=== PATIENT | female | born 1975 | race Two or more races ===

== ENCOUNTER 2017-04-29 19:41 | Emergency (ER) | payer OTHER ==
--- NOTE | 2017-04-29 20:14 | ER Document Report ---
ED Cardiac - General Chief Complaint: Chest Pain Stated Complaint: CHEST PAIN Time Seen by Provider: 04/29/17 19:59 Notes: Patient is a 42-year-old female that comes emergency department by EMS for chief complaint of chest pain. She states that while she was standing at work working a [employer] she started to have a sharp discomfort in the left side of her chest, this was in the mid to lower side of her chest, she states that the area became increasingly sharp and increasing uncomfortable, prompting her to call EMS. She was given 325 mg of aspirin, nitroglycerin SL, and she states pain has come down to a 1 out of 10 and is not causing her any significant discomfort. She denies nausea, shortness of breath, radiation of pain, dizziness, or any other symptoms. She has a history of myotonic dystrophy , sees a neurologist and takes gabapentin, she also has seen a [employer] consultant and had a normal echo and holter monitor, she sees them again in 6 months. She smokes. She denies personal or family history of cardiac disease. TRAVEL OUTSIDE OF THE [place] IN LAST 30 DAYS: No - Related Data Allergies/Adverse Reactions: No Known Allergies Allergy (Unverified 04/29/17 20:07) Past Medical History - General Information source: Patient - Social History Smoking Status: Current Every Day Smoker Chew tobacco use (# tins/day): No Smoking Education Provided: Yes - <3 min Frequency of alcohol use: Rare Drug Abuse: None Lives with: Family Family History: Reviewed & Not Pertinent Neurological Medical History: Reports: Other - Myotonic muscular dystrophy Renal/ Medical History: Denies: Hx Peritoneal Dialysis Surgical Hx: Negative - Immunizations Hx Diphtheria, Pertussis, Tetanus Vaccination: Yes Review of Systems - Review of Systems Constitutional: No symptoms reported EENT: No symptoms reported Cardiovascular: See HPI Respiratory: No symptoms reported Gastrointestinal: No symptoms reported Genitourinary: No symptoms reported Female Genitourinary: No symptoms reported Musculoskeletal: See HPI Skin: No symptoms reported Hematologic/Lymphatic: No symptoms reported Neurological/Psychological: No symptoms reported Physical Exam - Vital signs Vitals: Resp Pulse Ox 20 100 04/29/17 19:45 04/29/17 19:45 Interpretation: Normal - General General appearance: Appears well In distress: None - Small and thin, however she is in no distress - HEENT Head: Normocephalic, Atraumatic Eyes: Normal Pupils: PERRL - Respiratory Respiratory status: No respiratory distress Chest status: Tender - There is a reproducible tenderness over the mid to lower left side of the anterior chest wall, no induration, erythema, crepitus, or other abnormalities noted Breath sounds: Normal Chest palpation: Normal - Cardiovascular Rhythm: Regular, Bradycardia Heart sounds: Normal auscultation, S1 appreciated, S2 appreciated Murmur: No - Abdominal Inspection: Normal Distension: No distension Bowel sounds: Normal Tenderness: Nontender. No: Tender Organomegaly: No organomegaly - Back Back: Normal, Nontender - Extremities General upper extremity: Normal inspection, Nontender, Normal color, Normal ROM , Normal temperature General lower extremity: Normal inspection, Nontender, Normal color, Normal ROM , Normal temperature, Normal weight bearing. No: Shanae's sign - Neurological Neuro grossly intact: Yes Cognition: Normal Orientation: AAOx4 Jared Coma Scale Eye Opening: Spontaneous Jared Coma Scale Verbal: Oriented [place] Coma Scale Motor: Obeys Commands Jared Coma Scale Total: 15 Speech: Normal Motor strength normal: LUE, RUE, LLE, RLE Sensory: Normal - Psychological Associated symptoms: Normal affect, Normal mood - Skin Skin Temperature: Warm Skin Moisture: Dry Skin Color: Normal Course - Re-evaluation Re-evalutation: Patient with repeatable left sided chest wall tenderness on exam, history of myotonic dystrophy, CK is slightly elevated. EKG shows bradycardia with sinus rhythm, no T-wave inversions or ST segment changes in consecutive leads, no acute abnormalities. Patient states this is always her heart rate. Patient is borderline hypotensive, she was given nitroglycerin, will give some IV fluids, she states her blood pressure tends to be low as well because of her small body habitus. Patient's heart score is 1. Atypical pain now with chest wall pain on palpation , although the pain that brought her in has resolved after nitrogylcerin. Second troponin noted to be significantly elevated at 0.215. Concerning for NSTEMI. Patient still has no recurrence of chest pain on reevaluation. Discussed with patient, patient will be given Lovenox, discussed transfer, will call [facility]. Confirmed with Dr. Blanco. 04/30/17 01:20 Called [facility], pending call back. 04/30/17 02:15 Spoke with cardiology at [facility], patient to be accepted in transfer by Dr. Reaves. 04/30/17 02:15 EMS team already here. Patient with no chest pain complaints, vital signs stable , stable for transfer. - Vital Signs Vital signs: Temp Pulse Resp BP Pulse Ox 18 111/90 H 99 04/30/17 02:09 04/30/17 02:09 04/30/17 02:09 - Laboratory Result Diagrams: 04/29/17 19:45 04/29/17 19:45 Laboratory results interpreted by me: 04/29/17 04/29/17 04/29/17 19:45 19:45 22:35 RDW 14.4 H Lymphocytes % 46.8 H Total Bilirubin 1.6 H Creatine Kinase 321 H Urine Urobilinogen 2.0 H Ur Leukocyte Esterase TRACE H Urine Ascorbic Acid 40 H Discharge - Discharge Clinical Impression: NSTEMI (non-ST elevated myocardial infarction) Chest pain Qualifiers: Chest pain type: unspecified Qualified Code(s): R07.9 - Chest pain, unspecified Condition: Stable Disposition: [facility]
[2017-04-29 20:27] LABS: ABSOLUTE EOSINOPHILS # (AUTO) 0.1 10^3/uL (0.0-0.6); ABSOLUTE LYMPHOCYTES (AUTO) 3.8 10^3/uL (0.5-4.7); ABSOLUTE MONOCYTES (AUTO) 0.6 10^3/uL (0.1-1.4); ABSOLUTE NEUT (AUTO) 3.6 10^3/uL (1.7-8.2); BASOPHILS % (AUTO) 0.1 % (0-2); EOSINOPHILS % (AUTO) 1.8 % (0-6); HEMATOCRIT 42.5 % (36.0-47.0); HEMOGLOBIN 13.7 g/dL (12.0-15.5); HGB HCT DIFFERENCE -1.4; LYMPHOCYTES % (AUTO) 46.8 % (13-45); MEAN CORPUSCULAR HEMOGLOBIN 30.4 pg (27.0-33.4); MEAN CORPUSCULAR HGB CONC 32.2 g/dL (32.0-36.0); MEAN CORPUSCULAR VOLUME 94 fl (80-97); MONOCYTES % (AUTO) 7.2 % (3-13); RED BLOOD COUNT 4.51 10^6/uL (3.72-5.28); RED CELL DISTRIBUTION WIDTH 14.4 % (11.5-14.0); SEGMENTED NEUTROPHILS % (AUTO) 44.1 % (42-78); WHITE BLOOD COUNT 8.1 10^3/uL (4.0-10.5)
--- NOTE | 2017-04-29 20:30 | RADIOLOGY REPORT (SQ) ---
EXAM DESCRIPTION: CHEST SINGLE VIEW COMPLETED DATE/TIME: 04/29/2017 8:21 pm REASON FOR STUDY: chest pain COMPARISON: None. EXAM PARAMETERS: NUMBER OF VIEWS: One view. TECHNIQUE: Single frontal radiographic view of the chest acquired. RADIATION DOSE: NA LIMITATIONS: None. FINDINGS: LUNGS AND PLEURA: No opacities, masses or pneumothorax. No pleural effusion. MEDIASTINUM AND HILAR STRUCTURES: No masses. Contour normal. HEART AND VASCULAR STRUCTURES: Heart normal in size. Normal vasculature. BONES: No acute findings. HARDWARE: None in the chest. OTHER: No other significant finding. IMPRESSION: NO ACUTE RADIOGRAPHIC FINDING IN THE CHEST. TECHNICAL DOCUMENTATION: JOB ID: [id number]
[2017-04-29 20:34] LABS: ALANINE AMINOTRANSFERASE 38 U/L (9-52); ALBUMIN 4.3 g/dL (3.5-5.0); ALKALINE PHOSPHATASE 54 U/L (38-126); ANION GAP 10 (5-19); ASPARTATE AMINO TRANSFERASE 28 U/L (14-36); BILIRUBIN,DIRECT 0.2 mg/dL (0.0-0.4); BILIRUBIN,TOTAL 1.6 mg/dL (0.2-1.3); BLOOD UREA NITROGEN 9 mg/dL (7-20); CALCIUM 9.2 mg/dL (8.4-10.2); CARBON DIOXIDE 26 mmol/L (22-30); CHLORIDE 107 mmol/L (98-107); CREATINE KINASE 321 U/L (30-135); CREATININE RESULT 0.82 mg/dL (0.52-1.25); GLUCOSE 81 mg/dL (75-110); POTASSIUM 3.6 mmol/L (3.6-5.0); SODIUM 142.8 mmol/L (137-145); TOTAL PROTEIN 7.2 g/dL (6.3-8.2)
[2017-04-29 20:46] LABS: CREATINE KINASE MB 3.98 ng/mL (<4.55); TROPONIN I < 0.012 ng/mL
--- NOTE | 2017-04-29 20:52 | EKG REPORT ---
SEVERITY:- NORMAL ECG - SINUS RHYTHM : Confirmed by: Marc Cheung 29-Apr-2017 20:51:18
[2017-04-29] MEDS ORDERED: NORMAL SALINE 1000 ML 500 ML IV ONE (21:07)
[2017-04-29 22:58] LABS: AMORPHOUS SEDIMENT,URINE 2+ /HPF; APPEARANCE,URINE CLOUDY; BILIRUBIN,URINE NEGATIVE (NEGATIVE); GLUCOSE, URINE NEGATIVE (NEGATIVE); KETONES,URINE NEGATIVE (NEGATIVE); LEUKOCYTE ESTERASE,URINE TRACE (NEGATIVE); NITRITE,URINE NEGATIVE (NEGATIVE); PROTEIN,URINE NEGATIVE (NEGATIVE); URINE SPECIFIC GRAVITY 1.011
[2017-04-30] MEDS ORDERED: ENOXAPARIN SODIUM INJ 60 MG/0.6 ML DISP.SYRIN SUBCUT SCH (01:15)
[2017-04-30] MEDS ORDERED: ENOXAPARIN SODIUM INJ 60 MG/0.6 ML DISP.SYRIN SUBCUT ONE (01:15)
[2017-04-30 02:18] VITALS: BP 111/90
== END 2017-04-30 02:25 | disposition short-term general hospital (02) ==
LOC: ER 19:41
DX: I21.4 Non-ST elevation (NSTEMI) myocardial infarction (principal); R07.89 Other chest pain; R00.1 Bradycardia, unspecified; G71.11 Myotonic muscular dystrophy; F17.200 Nicotine dependence, unspecified, uncomplicated; Z71.6 Tobacco abuse counseling; Z79.899 Other long term (current) drug therapy
CPT/HCPCS: 93005; 99285; 96372; 96360; 36415; 82553; 82550; 85025; 81025; 80053; 81001; 84484; 71010; 93010; J7030; J1650